=== PATIENT | female | born 1950 ===

== ENCOUNTER → 2023-03-07 | Outpatient (CLI) | payer MEDICARE, OTHER | LOC: LAB SHORT 16:31 → PLD 16:31 | DX: D48.5 Neoplasm of uncertain behavior of skin (principal) | CPT/HCPCS: 88342 ==

== ENCOUNTER → 2024-12-13 | Outpatient (CLI) | payer MEDICARE, OTHER | LOC: LAB 15:55 → LAB SHORT 15:55 | DX: N39.0 Urinary tract infection, site not specified (principal) | CPT/HCPCS: 87086 ==